=== PATIENT | male | born 1995 | race Caucasian/White ===

== ENCOUNTER 2019-12-11 20:28 | Emergency (ER) | payer BC ==
[~2019-12-11] VITALS: Ht 177.8 cm; Wt 136.0 kg
[~2019-12-11 20:28] MED LIST: A/B OTIC AD; AMOXICILLIN875 MG PO; AUGMENTIN875TAB PO; BACTRIM DS1 TAB PO; CIPRODEX1 ML AD; CIPROFLOXACN500 MG PO; MOTRIN400 MG PO; MUPIROCIN2 % EX
[2019-12-11 22:34] LABS: URINE BILIRUBIN - DIPSTICK NEGATIVE (NEGATIVE); URINE BLOOD DIPSTICK NEGATIVE (NEGATIVE); URINE COLOR YELLOW; URINE GLUCOSE - DIPSTICK NEGATIVE (NEGATIVE); URINE KETONE TRACE mg/dL (NEGATIVE); URINE LEUK ESTERASE NEGATIVE (NEGATIVE); URINE NITRITE - DIPSTICK NEGATIVE (Negative); URINE PROTEIN - DIPSTICK NEGATIVE (NEG-TRACE); URINE UROBILINOGEN - DIPSTICK 0.2 E.U./dL (0.2)
[2019-12-11 22:36] LABS: HEMOGLOBIN 14.7 g/dl (14.0-18.0); IMMATURE GRANULOCYTES 0.4 % (0.0-5.0); MEAN CELL VOLUME 85.8 fL CALC (80.0-100.0); MEAN CORPUSCULAR HGB 28.7 pG CALC (26.0-32.0); MEAN CORPUSCULAR HGB CONC 33.4 g/dL CAL (32.0-36.0); NEUT# 10.53 thou/uL (1.82-7.42); RED BLOOD COUNT 5.13 mill/uL (4.70-6.10); RED CELL DISTRI WIDTH 12.3 % (11.5-15.5)
[2019-12-11 22:52] LABS: ALBUMIN 4.9 g/dL (3.2-5.0); ALKALINE PHOSPHATASE 56 u/l (38-126); AMYLASE 46 u/l (30-110); ANION GAP 17 (6-22 (CALC)); BILIRUBIN, TOTAL 0.6 mg/dL (0.0-1.4); BUN 18 mg/dL (9-20); BUN/CREATININE RATIO 16 (12-20 (CALC)); CARBON DIOXIDE 24 mmol/l (22-30); CHLORIDE 97 mmol/l (95-108); CREATININE 1.1 mg/dL (0.7-1.3); GFR > 60 ML/MIN (>=60 (CALC)); GFR FOR AFR.AMER. > 60 ML/MIN (>=60 (CALC)); LIPASE 54 u/l (23-300); POTASSIUM 4.3 mmol/l (3.5-5.1); SGOT/AST 25 u/l (17-59); SODIUM 134 mmol/l (137-146); TOTAL PROTEIN 7.8 g/dL (6.3-8.2)
[2019-12-12] MEDS ORDERED: PHENERGAN25 MG/TAB PO (00:15)
[2019-12-12] MEDS ORDERED: LOMOTIL2.5 MG PO (00:15)
[2019-12-12 00:29] VITALS: BP 120/57
== END 2019-12-12 00:41 | disposition home or self-care (01) | DRG 392 ==
LOC: ED 20:28
PROVIDERS: Family Medicine
DX: A08.4 Viral intestinal infection, unspecified (principal)
CPT/HCPCS: Q9967

== ENCOUNTER 2024-02-23 17:27 | Emergency (ER) | payer BC ==
[~2024-02-23] VITALS: Ht 177.8 cm; Wt 136.0 kg
[~2024-02-23 17:27] MED LIST changes: +LOMOTIL2.5 MG PO; +PHENERGAN25 MG/TAB PO
[2024-02-23 17:34] VITALS: BP 152/94
[2024-02-23] MEDS ORDERED: KEFLEX500 MG PO (17:39)
[2024-02-23] MEDS ORDERED: BACTRIM DS1 TAB PO (17:39)
[2024-02-23 17:46] VITALS: BP 132/74
[2024-02-23 17:48] VITALS: BP 152/94
== END 2024-02-23 17:48 | disposition home or self-care (01) | DRG 603 ==
LOC: ED 17:27
DX: L03.116 Cellulitis of left lower limb (principal)